=== PATIENT | male | born 1940 | race Caucasian/White ===

== ENCOUNTER 2018-09-23 20:06 | Emergency (ER) | payer BC ==
[2018-09-23] MEDS ORDERED: NS(*) 0.9% 1000 ML BAG 1,000 ML IV ONE ×3 (20:09→21:30)
--- NOTE | 2018-09-23 20:09 | ER Report ---
History and Physical Time Seen By MD: 20:05 HPI/ROS CHIEF COMPLAINT: Bleeding from varicose vein, right leg HISTORY OF PRESENT ILLNESS: 78-year-old male brought in by EMS from home with significant blood loss from a ruptured varicose vein in his right lower extremity while in the shower. Patient states he had a small pustule or bump there that burst open in the shower. EMS reports there was blood spread throughout the house is patient began to move around. They estimate potentially 2 units of blood loss at home. They established a peripheral IV and began to give fluids. Patient began to vasovagal and had emesis. They gave Zofran 4 mg IV. EMS applied a pressure dressing to his right lower extremity. An control the bleeding area. Patient states he takes no blood thinners. On arrival. Patient denies chest pain or shortness of breath. He appears clammy and diaphoretic, pale. On visual examination. REVIEW OF SYSTEMS: Respiratory: No cough, no dyspnea. Cardiovascular: No chest pain, no palpitations. Gastrointestinal: No vomiting, no abdominal pain. Musculoskeletal: No back pain. Allergies: Coded Allergies: No Known Drug Allergies (Unverified , 03/12/12) Home Meds Reported Medications Hydrochlorothiazide (HYDROCHLOROTHIAZIDE) 25 Mg Tablet, 1 TAB PO QDAY, TAB 04/20/17 Lutein (LUTEIN) 20 Mg Capsule, 20 MG PO DAILY, CAPSULE 04/20/17 Lisinopril (LISINOPRIL) 20 Mg Tablet, 20 MG PO DAILY, TAB 04/20/17 Fluoxetine Hcl (PROZAC) 20 Mg Capsule, 20 MG PO QDAY, CAPSULE 08/30/13 Multivitamins (Multivitamin) 1 Tab Tablet, 1 TAB PO DAILY 03/20/12 Docosahexanoic Acid/Epa (Fish Oil 1,000 Mg Capsule) 1 Cap Capsule, 2 CAP PO DAILY 03/20/12 Atorvastatin Calcium (Lipitor) 20 Mg Tablet, 20 MG PO QHS 03/12/12 Past Medical/Surgical History Past medical history: Hypertension, hyperlipidemia, depression Reviewed Nurses Notes: Yes Old Medical Records Reviewed: Yes Hx Smoking: No Smoking Status: Never Smoker Exposure to Second Hand Smoke?: No Hx Substance Use Disorder: No Hx Alcohol Use: No Constitutional Vital Sign - Last 24 Hours 3/24/19 3/24/19 3/24/19 3/24/19 20:06 20:08 20:11 20:16 Temp 98.2 Pulse 86 84 81 80 Resp 18 19 16 B/P (MAP) 129/79 Pulse Ox 97 97 98 98 O2 Delivery Nasal Cannula 09/23/18 09/23/18 09/23/18 09/23/18 20:17 20:20 20:21 20:21 Pulse 80 Resp 21 B/P (MAP) 95/70 (78) 97/68 (78) Pulse Ox 94 O2 Flow Rate 2.0 09/23/18 09/23/18 09/23/18 09/23/18 20:25 20:26 20:30 20:31 Pulse 76 74 Resp 17 19 B/P (MAP) 97/68 (78) 91/60 (70) Pulse Ox 97 97 09/23/18 09/23/18 09/23/18 09/23/18 20:35 20:36 20:40 20:41 Pulse 76 75 Resp 22 16 B/P (MAP) 85/52 (63) 88/63 (71) Pulse Ox 97 97 09/23/18 09/23/18 09/23/18 09/23/18 20:45 20:46 20:50 20:51 Pulse 72 74 Resp 22 0 B/P (MAP) 79/60 (66) 86/57 (67) Pulse Ox 96 97 09/23/18 09/23/18 09/23/18 09/23/18 20:55 20:56 20:59 21:01 Pulse 77 71 Resp 14 19 B/P (MAP) 67/33 (44) 100/66 (77) Pulse Ox 86 98 09/23/18 09/23/18 09/23/18 09/23/18 21:06 21:10 21:11 21:15 Pulse 70 70 Resp 20 16 B/P (MAP) 98/62 (74) 106/70 (82) Pulse Ox 98 97 09/23/18 09/23/18 09/23/18 09/23/18 21:16 21:20 21:21 21:25 Pulse 69 71 Resp 19 20 B/P (MAP) 113/64 (80) 112/61 (78) Pulse Ox 98 92 09/23/18 09/23/18 09/23/18 09/23/18 21:26 21:30 21:31 21:35 Pulse 67 66 Resp 23 19 B/P (MAP) 123/70 (87) 121/74 (90) Pulse Ox 100 100 09/23/18 09/23/18 09/23/18 09/23/18 21:36 21:40 21:41 21:45 Pulse 66 66 Resp 10 12 B/P (MAP) 122/70 (87) 133/72 (92) Pulse Ox 99 100 09/23/18 09/23/18 09/23/18 09/23/18 21:46 21:51 21:55 21:56 Pulse 67 66 64 Resp 13 20 17 B/P (MAP) 128/73 (91) Pulse Ox 98 100 100 09/23/18 09/23/18 09/23/18 09/23/18 22:00 22:01 22:05 22:06 Pulse 68 67 Resp 11 19 B/P (MAP) 124/75 (91) 126/75 (92) Pulse Ox 100 98 09/23/18 09/23/18 09/23/18 09/23/18 22:10 22:11 22:15 22:16 Pulse 64 66 Resp 21 19 B/P (MAP) 127/76 (93) 125/75 (92) Pulse Ox 98 99 09/23/18 09/23/18 09/23/18 09/23/18 22:20 22:21 22:25 22:26 Pulse 67 66 Resp 13 16 B/P (MAP) 126/78 (94) 122/74 (90) Pulse Ox 99 99 09/23/18 09/23/18 09/23/18 09/23/18 22:30 22:31 22:35 22:36 Pulse 70 68 Resp 20 21 B/P (MAP) 128/77 (94) 131/76 (94) Pulse Ox 99 99 09/23/18 09/23/18 09/23/18 09/23/18 22:40 22:41 22:45 22:46 Pulse 70 75 Resp 25 22 B/P (MAP) 129/74 (92) 87/61 (70) Pulse Ox 99 96 09/23/18 09/23/18 09/23/18 09/23/18 22:50 22:51 22:55 22:56 Pulse 69 68 Resp 11 17 B/P (MAP) 126/83 (97) 114/71 (85) Pulse Ox 99 98 09/23/18 09/23/18 09/23/18 09/23/18 23:00 23:01 23:05 23:06 Pulse 69 78 Resp 19 15 B/P (MAP) 127/78 (94) 133/82 (99) Pulse Ox 97 97 09/23/18 09/23/18 09/23/18 09/23/18 23:10 23:11 23:15 23:16 Pulse 74 77 Resp 18 23 B/P (MAP) 106/66 (79) 126/81 (96) 09/23/18 09/23/18 09/23/18 09/23/18 23:20 23:21 23:25 23:26 Pulse 80 77 Resp 22 20 B/P (MAP) 122/71 (88) 111/77 (88) 09/23/18 09/23/18 09/23/18 09/23/18 23:30 23:31 23:36 23:51 Pulse 78 76 74 Resp 10 11 16 B/P (MAP) 121/70 (87) 09/24/18 00:06 Pulse 74 Resp 24 Intake and Output 09/23/18 09/23/18 09/24/18 15:00 23:00 07:00 Intake Total 3000 ml Balance 3000 ml Physical Exam Vital signs stable, afebrile, pulse ox normal, supplemental O2 2 L applied to the patient's diaphoresis and paleness. General Appearance: The patient is alert, has no immediate need for airway protection and no current signs of toxicity. HEENT: Pupils equal and round no injection. Emesis. On chest and chin. Oropharynx without redness or exudate Respiratory: Chest is non tender, lungs are clear to auscultation. No wheezing or rails Cardiac: regular rate and rhythm, no murmur Gastrointestinal: Abdomen is soft and non tender, no masses, bowel sounds normal. Musculoskeletal: Neck: Neck is supple and non tender. Extremities have full range of motion and are non tender. Pressure dressing on right lower extremity, evidence of stasis dermatitis. Multiple varicosities noted. Skin: No rashes or lesions. DIFFERENTIAL DIAGNOSIS: After history and physical exam differential diagnosis was considered for bleeding lower extremity, ruptured varicose vein, hypovol emia, syncope Medical Decision Making Data Points Result Diagram: 09/23/18223109/23/182011 Laboratory Hematology Test 09/23/18 20:12 09/23/18 22:32 09/23/18 22:50 Red Blood Count 5.16 M/uL (4.00-5.60) Mean Corpuscular Volume 88.5 fL (80.0-96.0) Mean Corpuscular Hemoglobin 29.9 pg (26.0-33.0) Mean Corpuscular Hemoglobin Concent 33.8 g/dL (32.0-36.0) Red Cell Distribution Width 13.4 % (11.5-14.5) Mean Platelet Volume 9.7 fL (7.2-11.1) Neutrophils (%) (Auto) 42.3 % (39.4-72.5) Lymphocytes (%) (Auto) 43.1 % (17.6-49.6) Monocytes (%) (Auto) 11.5 % (4.1-12.4) Eosinophils (%) (Auto) 2.0 % (0.4-6.7) Basophils (%) (Auto) 1.1 % (0.3-1.4) Nucleated RBC Relative Count (auto) 0.0 /100WBC Neutrophils # (Auto) 3.4 K/uL (2.0-7.4) Lymphocytes # (Auto) 3.5 K/uL (1.3-3.6) Monocytes # (Auto) 0.9 K/uL (0.3-1.0) Eosinophils # (Auto) 0.2 K/uL (0.0-0.5) Basophils # (Auto) 0.1 K/uL (0.0-0.1) Nucleated RBC Absolute Count (auto) 0.00 K/uL Prothrombin Time 14.0 seconds (12.0-14.4) Prothromb Time International Ratio 1.07 Activated Partial Thromboplast Time 26 seconds (23-35) Sodium Level 136 mmol/L (137-145) Potassium Level 3.5 mmol/L (3.5-5.0) Chloride Level 104 mmol/L (98-107) Carbon Dioxide Level 18 mmol/L (22-30) Blood Urea Nitrogen 20 mg/dl (9-21) Creatinine 1.20 mg/dl (0.66-1.25) Glomerular Filtration Rate Calc 58.6 Random Glucose 140 mg/dl (75-110) Calcium Level 9.1 mg/dl (8.4-10.2) Total Bilirubin 0.6 mg/dl (0.2-1.3) Aspartate Amino Transf (AST/SGOT) 33 U/L (0-35) Alanine Aminotransferase (ALT/SGPT) 36 U/L (0-56) Alkaline Phosphatase 58 U/L (0-126) Troponin I < 0.012 ng/ml Total Protein 7.1 g/dl (6.3-8.2) Albumin 4.2 g/dl (3.5-5.0) Lactate 4.0 mmol/L (0.7-2.1) Urine Color Yellow Urine Clarity Clear Urine pH 8.0 pH (4.8-9.5) Urine Specific [place] 1.012 Urine Protein Negative mg/dL (NEGATIVE) Urine Glucose (UA) Negative mg/dL (NEGATIVE) Urine Ketones 20 mg/dL (NEGATIVE) Urine Blood Negative (NEGATIVE) Urine Nitrite Negative (NEGATIVE) Urine Bilirubin Negative (NEGATIVE) Urine Urobilinogen Negative mg/dL (0.2-1.9) Urine Leukocyte Esterase Negative (NEGATIVE) Urine RBC None /HPF (0-2/HPF) Urine WBC <1 /HPF (0-5/HPF) Urine Squamous Epithelial Cells None /LPF (</=FEW) Urine Bacteria Negative /HPF (NONE-FEW) Urine Hyaline Casts Few /LPF (NONE-FEW) Urine Mucus None /HPF (NONE-FEW) Chemistry Test 09/23/18 20:12 09/23/18 22:32 09/23/18 22:50 White Blood Count 8.0 k/uL (4.5-11.0) Red Blood Count 5.16 M/uL (4.00-5.60) Mean Corpuscular Volume 88.5 fL (80.0-96.0) Mean Corpuscular Hemoglobin 29.9 pg (26.0-33.0) Mean Corpuscular Hemoglobin Concent 33.8 g/dL (32.0-36.0) Red Cell Distribution Width 13.4 % (11.5-14.5) Platelet Count 247 K/uL (150-450) Mean Platelet Volume 9.7 fL (7.2-11.1) Neutrophils (%) (Auto) 42.3 % (39.4-72.5) Lymphocytes (%) (Auto) 43.1 % (17.6-49.6) Monocytes (%) (Auto) 11.5 % (4.1-12.4) Eosinophils (%) (Auto) 2.0 % (0.4-6.7) Basophils (%) (Auto) 1.1 % (0.3-1.4) Nucleated RBC Relative Count (auto) 0.0 /100WBC Neutrophils # (Auto) 3.4 K/uL (2.0-7.4) Lymphocytes # (Auto) 3.5 K/uL (1.3-3.6) Monocytes # (Auto) 0.9 K/uL (0.3-1.0) Eosinophils # (Auto) 0.2 K/uL (0.0-0.5) Basophils # (Auto) 0.1 K/uL (0.0-0.1) Nucleated RBC Absolute Count (auto) 0.00 K/uL Prothrombin Time 14.0 seconds (12.0-14.4) Prothromb Time International Ratio 1.07 Activated Partial Thromboplast Time 26 seconds (23-35) Glomerular Filtration Rate Calc 58.6 Calcium Level 9.1 mg/dl (8.4-10.2) Total Bilirubin 0.6 mg/dl (0.2-1.3) Aspartate Amino Transf (AST/SGOT) 33 U/L (0-35) Alanine Aminotransferase (ALT/SGPT) 36 U/L (0-56) Alkaline Phosphatase 58 U/L (0-126) Troponin I < 0.012 ng/ml Total Protein 7.1 g/dl (6.3-8.2) Albumin 4.2 g/dl (3.5-5.0) Hemoglobin 14.1 g/dL (14.0-18.0) Hematocrit 42.7 % (42.0-52.0) Lactate 4.0 mmol/L (0.7-2.1) Urine Color Yellow Urine Clarity Clear Urine pH 8.0 pH (4.8-9.5) Urine Specific [place] 1.012 Urine Protein Negative mg/dL (NEGATIVE) Urine Glucose (UA) Negative mg/dL (NEGATIVE) Urine Ketones 20 mg/dL (NEGATIVE) Urine Blood Negative (NEGATIVE) Urine Nitrite Negative (NEGATIVE) Urine Bilirubin Negative (NEGATIVE) Urine Urobilinogen Negative mg/dL (0.2-1.9) Urine Leukocyte Esterase Negative (NEGATIVE) Urine RBC None /HPF (0-2/HPF) Urine WBC <1 /HPF (0-5/HPF) Urine Squamous Epithelial Cells None /LPF (</=FEW) Urine Bacteria Negative /HPF (NONE-FEW) Urine Hyaline Casts Few /LPF (NONE-FEW) Urine Mucus None /HPF (NONE-FEW) Coagulation Test 09/23/18 20:12 Prothrombin Time 14.0 seconds Prothromb Time International Ratio 1.07 Activated Partial Thromboplast Time 26 seconds Urinalysis Test 09/23/18 22:50 Urine Color Yellow Urine Clarity Clear Urine pH 8.0 pH (4.8-9.5) Urine Specific [place] 1.012 Urine Protein Negative mg/dL (NEGATIVE) Urine Glucose (UA) Negative mg/dL (NEGATIVE) Urine Ketones 20 mg/dL (NEGATIVE) Urine Blood Negative (NEGATIVE) Urine Nitrite Negative (NEGATIVE) Urine Bilirubin Negative (NEGATIVE) Urine Urobilinogen Negative mg/dL (0.2-1.9) Urine Leukocyte Esterase Negative (NEGATIVE) Urine RBC None /HPF (0-2/HPF) Urine WBC <1 /HPF (0-5/HPF) Urine Squamous Epithelial Cells None /LPF (</=FEW) Urine Bacteria Negative /HPF (NONE-FEW) Urine Hyaline Casts Few /LPF (NONE-FEW) Urine Mucus None /HPF (NONE-FEW) EKG/Imaging EKG Interpretation 12 lead EK Rhythm: normal sinus rhythm [place]: normal QRS: normal ST segments: normal, no evidence of ischemia or dysrhythmia Imaging X-ray: [location] was obtained. I viewed the images myself on the PACS system. My interpretation of the images is: []. [The radiologist interpretation had no clinically significant variation from this interpretation]. ED Course/Re-evaluation Clinical Indication for ER IV: Hydration, IV Access ED Course Patient was admitted to an examination room. H&P was done. The differential diagnosis was considered. Patient with potential blood loss of 2-3 units of blood at home prior to arrival. On arrival, patient's mildly diaphoretic. He is resuscitated with 1 L of crystalloid. Bleeding is controlled. His crossmatch for 2 units. Supination of the right lower extremity reveals a shallow 4 mm ulcer over a varicose vein and posterior to the lateral malleolus. The wound. Wound was cleansed gently began to lose is a stream of dark red blood. The wound was infiltrated with lidocaine 1% with epinephrine. Vicryl 4- 0 sutures 3 were used to ligate the vein. Silver nitrate cautery was applied over the ulcer obtaining good hemostasis. A pressure dressing was applied over the site. Decision to Disposition Date: Sep 23, 2018 Decision to Disposition Time: 23:43 Depart Departure Latest Vital Signs Vital Signs Date Time Temp Pulse Resp B/P (MAP) Pulse Ox O2 Delivery O2 Flow Rate FiO2 09/24/18 00:06 74 24 09/23/18 23:30 121/70 (87) 09/23/18 23:06 97 09/23/18 20:21 2.0 09/23/18 20:08 98.2 Nasal Cannula Impression: Primary Impression: Bleeding from varicose vein Additional Impression: Shock Condition: Improved Disposition: HOME OR SELF-CARE Referrals: ESHA CARRASCOP (PCP) Patient Instructions: Varicose Veins (ED) Additional Instructions: Wear pressure dressing for 2 days Skip your blood pressure medicine for 24 hours Follow-up with primary care or urgent care to have your dressing replaced in 2 days Problem Qualifiers LEOBARDO CAMPBELL DO Sep 23, 2018 20:09
[2018-09-23] MEDS ORDERED: ONDANSETRON 4 MG/2 ML VIAL IVP ONE (20:15)
[2018-09-23 20:27] LABS: PLATELET COUNT, AUTOMATED 247 K/uL (150-450)
[2018-09-23 20:31] LABS: INR 1.07
--- NOTE | 2018-09-23 20:35 | EKG ---
FACILITY: [facility] PATIENT NAME: ZAK GONZALES : [id number] MR: [id number] V: [id number] EXAM DATE: ORDERING PHYSICIAN: LEOBARDO CAMPBELL TECHNOLOGIST: TERRY Test Reason : SYNCOPE Blood Pressure : / mmHG Vent. Rate : 084 BPM Atrial Rate : 084 BPM P-R Int : 164 ms QRS Dur : 098 ms QT Int : 402 ms P-R-T Axes : 008 088 076 degrees QTc Int : 475 ms Sinus rhythm Nonspecific ST findings inferiorly When compared with ECG of 30-AUG-2013 20:30, No significant change was found Confirmed by MARVIN PADGETT ([id number]) on 09/24/2018 6:20:38 AM Referred By: Confirmed By:MARVIN PADGETT
--- NOTE | 2018-09-23 21:21 | RADIOLOGY IMAGING REPORT ---
FACILITY: [facility] PATIENT NAME: Vernon Grijalva : 1940 MR: [id number] V: [id number] EXAM DATE: ORDERING PHYSICIAN: LEOBARDO CAMPBELL TECHNOLOGIST: Location: [facility] [place] Patient: Vernon Grijalva : 1940 Visit/Account:[id number] Date of Sevice: 09/23/2018 AP CHEST 09/23/2018 8:09 PM. INDICATION: Syncope. COMPARISON: 08/30/2013 radiograph, CT 04/20/2017. FINDINGS: Lungs are well-expanded. There is no consolidation. Partially calcified granuloma over the right bas e. No pleural effusion or pneumothorax. Heart size is normal. Aortic calcification. IMPRESSION: No acute abnormality. Report Dictated By: Rodrick Sellers MD at 09/23/2018 9:15 PM Report E-Signed By: Rodrick Sellers MD at 09/23/2018 9:17 PM WSN:[id number]
[2018-09-23] MEDS ORDERED: SILVER NITRATE SWABS 10 PKG TP ONE (23:10)
[2018-09-23 23:30] VITALS: BP 121/70
== END 2018-09-24 01:18 | disposition home or self-care (01) ==
LOC: ER 20:19
DX: I83.891 Varicose veins of right lower extremity with other complications (principal); R57.9 Shock, unspecified
CPT/HCPCS: 12001; 36415; 71045; 81001; 83605; 84484; 85014; 85018; 85025; 85610; 85730; 86850; 86900; 86901; 86920; 93005; 96361; 96374; 99284; J2405; J7030; 82040; 82247; 82310; 82374; 82435; 82565; 82947; 84075; 84132; 84155; 84295; 84450; 84460; 84520

== ENCOUNTER → 2018-09-23 | Outpatient (CLI) | payer BC ==
[~2018-09-23] MED LIST: ATOR20TA22 PO; FLUO-202 PO; HYDR-2966 PO; LISI-346 PO; LISI20TA29 PO; LUTE20CA11 PO; LUTE6TAB PO; MULT-820 PO; OMEG-11 PO
== END ==
LOC: AMB 19:43
PROVIDERS: ATTEND Nurse Practitioner
DX: S91.011A Laceration without foreign body, right ankle, initial encounter (principal); R42 Dizziness and giddiness; R61 Generalized hyperhidrosis; R53.1 Weakness
CPT/HCPCS: A0425; A0427